=== PATIENT | male | born 1980 | race Two or more races ===

== ENCOUNTER 2018-04-19 17:48 | Emergency (ER) | payer OTHER ==
[~2018-04-19] VITALS: Ht 170.2 cm; Wt 86.2 kg
== END 2018-04-19 21:09 | disposition home or self-care (01) ==
LOC: ER 17:48
DX: S61.223A Laceration with foreign body of left middle finger without damage to nail, initial encounter (principal); W45.8XXA Other foreign body or object entering through skin, initial encounter; Y93.89 Activity, other specified; Y92.89 Other specified places as the place of occurrence of the external cause; Y99.8 Other external cause status

== ENCOUNTER 2021-09-18 15:23 | Emergency (ER) | payer OTHER ==
[~2021-09-18] VITALS: Ht 170.2 cm; Wt 83.9 kg
[2021-09-18] MEDS ORDERED: COZAAR50 MG (15:49)
[2021-09-18] MEDS ORDERED: DUI500 PO (21:22)
== END 2021-09-18 21:44 | disposition home or self-care (01) ==
LOC: ER 15:23
DX: M25.521 Pain in right elbow (principal); L03.113 Cellulitis of right upper limb; I10 Essential (primary) hypertension

== ENCOUNTER 2025-02-24 08:54 | Outpatient (CLI) | payer OTHER ==
[~2025-02-24 08:54] MED LIST: COZAAR50 MG; DUI500 PO
== END 2025-02-24 08:55 | disposition home or self-care (01) ==
LOC: NUCLEAR 08:54
PROVIDERS: ATTEND Specialist
DX: I87.2 Venous insufficiency (chronic) (peripheral) (principal)